=== PATIENT | female | born 1950 ===

== ENCOUNTER → 2021-05-29 | Outpatient (CLI) | payer MEDICARE, OTHER ==
--- NOTE | 2021-05-29 10:58 | KCIC ---
Examination: MRI of the right foot without contrast HISTORY: History of right foot pain COMPARISON: None available TECHNIQUE: Multiplanar, multisequence MR imaging of the right foot were performed without contrast FINDINGS: The alignment of the tarsal bones, tarsometatarsal joints, grossly appears unremarkable. Mi ld degenerative changes identified in the tarsal joints and tarsometatarsal joints. The distal attach ment of the flexor tendons, peroneal tendons, anterior extensor tendons grossly appears intact. There is mild increased T2 signal identified in the proximal portion of the third metatarsal likely t rabecular edema. Moderate joint space loss identified in the third tarsometatarsal joint likely degen erative changes. Mild increased T2 signal identified in the soft tissue dorsal to the proximal third metatarsal. Fat is present within the sinus tarsi. The anterior, posterior talofibular ligaments appear intact. IMPRESSION: 1. Mild increased T2 signal identified in the proximal portion of the third metatarsal likely trabec ular edema probably secondary to stress reactive change or stress fracture. 2. Moderate degenerative changes third tarsometatarsal joint. 3. Mild increased T2 signal identified in the soft tissue dorsal to the proximal third metatarsal no nspecific likely edema or cellulitis. Electronically signed by: Adolfo Jackman MD (05/29/2021 10:56 AM) [id number]
== END ==
LOC: KCIC MRI 07:51
PROVIDERS: ATTEND Physician Assistant
DX: M19.071 Primary osteoarthritis, right ankle and foot (principal); M25.861 Other specified joint disorders, right knee
CPT/HCPCS: 73718